=== PATIENT | female | born 1975 | race Two or more races ===

== ENCOUNTER → 2024-09-22 | Outpatient (CLI) | payer MEDICARE, MEDICAID, SELFPAY ==
--- NOTE | 2024-09-22 09:00 | XR_ITS ---
Examination: Esophagram standard Fluoroscopy 19 spot fluoroscopic films of the esophagus Upright PA chest single view Upright soft tissue lateral neck single view Date and time: September 22, 2024 0923 hours INDICATIONS: Difficulty swallowing 6 months TECHNIQUE AND FINDINGS: Upright PA chest single view demonstrates normal heart size, lungs are clear Soft tissue lateral neck demonstrates normal epiglottis Patient swallowed thin barium with primary peristaltic esophageal waves noted Mild secondary and tertiary esophageal contractions Mild intermittent gastroesophageal reflux. No constricting esophageal lesion There is no stricture at the gastroesophageal junction Fluoroscopy 0.16 minutes 18 spot fluoroscopic films IMPRESSION: Mild esophageal dysmotility Mild intermittent gastroesophageal reflux There is no stricture at the gastroesophageal junction
== END | disposition home or self-care (01) ==
PROVIDERS: Referring Provider Physician Assistant Medical; Visit Provider Physician Assistant Medical
DX: K21.9 Gastro-esophageal reflux disease without esophagitis (principal); K22.89 Other specified disease of esophagus
CPT/HCPCS: 74220; A4649